=== PATIENT | male | born 1990 | race Caucasian/White ===

== ENCOUNTER 2019-11-18 18:11 | Emergency (ER) | payer OTHER, SELFPAY ==
[2019-11-18 18:40] VITALS: BP 134/84; PULSE 100; RESP 18; TEMP 36.8; O2SAT 99
--- NOTE | 2019-11-18 19:52 | ED.GENADULT ---
HPI - General Adult General Chief complaint: Eye Problems Stated complaint: L EYE DRAINAGE Time Seen by Provider: 11/18/19 19:32 Source: patient Mode of arrival: ambulatory Limitations: no limitations History of Present Illness HPI narrative: 29-year-old male presents for evaluation of left eye redness, clear drainage, blurry vision, some discomfort. He states this developed at 1700 yesterday after he was working underneath of a car. He did not have on glasses or goggles at that time. He denies any specific time that anything fell into his eye. When his eye became irritated, he washed it with water and saline. He reports he has been rubbing his eye and when he woke up this morning there was dried, yellow matted secretions to his eye. Since then throughout the day it is been clear. He does not wear contacts. Still able to drive. Denies any swelling, abnormal bleeding, headache, weakness, confusion. Related Data Home Medications Medication Instructions Recorded Confirmed sertraline 200 mg PO DAILY 11/18/19 11/18/19 Allergies Allergy/AdvReac Type Severity Reaction Status Date / Time No Known Allergies Allergy Verified 11/18/19 18:49 Review of Systems Review of Systems: Narrative: CONSTITUTIONAL: Denies fever, chills, weight loss, or sweats. EYES: Reports left eye visual changes, redness, clear discharge. CARDIOVASCULAR: Denies chest pain, palpitations, or edema. RESPIRATORY: Denies cough or dyspnea. SKIN: Denies rash or itching. NEUROLOGIC: Denies headache, numbness, or weakness. PSYCHIATRIC: Denies anxiety or depression. All systems reviewed & are unremarkable except as noted in HPI and below PMFSH Comments At the time of my signature, I agree with nursing past medical, surgical, social and family history. There is no relevant family history pertinent to the presenting complaint. Exam Narrative: Exam Narrative: GENERAL: No distress, well appearing, well nourished, alert and calm HEAD: Normocephalic, atraumatic. No sinus tenderness noted EYES: Pupils equal, round reactive to light. Extraocular movements intact. Conjunctivae without redness or drainage. Foreign body brown speckle noted at 9:00 of patients eye over iris. NOSE: Nares patent. Nasal turbinates noninflamed. No nasal discharge MOUTH: Mucous membranes moist. No lesions. No cyanosis. Dentition grossly normal. THROAT: Oropharynx without signs erythema, exudates or lesions. Tonsils not enlarged. NECK: Supple. No lymphadenopathy. RESPIRATORY: Airway patent. Chest clear to auscultation bilaterally. Breath sounds equal bilaterally. No retractions. CARDIOVASCULAR: Regular rate and rhythm. No murmurs, rubs, gallops, or clicks. Capillary refill <2 seconds. NEURO: Alert. Motor intact in all extremities. Muscle tone normal. Course Vital Signs Vital signs: Vital Signs Temperature 98.3 F 11/18/19 18:40 Pulse Rate 100 11/18/19 18:40 Respiratory Rate 18 11/18/19 18:40 Blood Pressure 134/84 11/18/19 18:40 Pulse Oximetry 99 11/18/19 18:40 Temperature 98.3 F 11/18/19 18:40 Pulse Rate 100 11/18/19 18:40 Respiratory Rate 18 11/18/19 18:40 Blood Pressure 134/84 11/18/19 18:40 Pulse Oximetry 99 11/18/19 18:40 The patient has been informed that they may have pre-hypertension or Hypertension based on a BP reading in the department. I recommend that the patient call the primary care provider listed on their discharge instructions or a physician of their choice this week to arrange follow up for further evaluation of possible pre-hypertension or Hypertension Medical Decision Making MDM Narrative Medical decision making narrative: Patient is in no acute distress and is non toxic appearing. I performed a fluorescein eye exam on patient. With the naked eye, I could observe a pinpoint brown dot to 9:00 over patient's left pupil. I administered 1 drop of tetracaine into patient's left eye and pulled down left lower eye lid with drop of
== END 2019-11-18 20:08 | disposition home or self-care (01) ==
PROVIDERS: Emergency Provider Nurse Practitioner; PCP Emergency Medicine
DX: T15.02XA Foreign body in cornea, left eye, initial encounter (principal); X58.XXXA Exposure to other specified factors, initial encounter; F41.9 Anxiety disorder, unspecified
CPT/HCPCS: 65220; 99203; A9270; G0463

== ENCOUNTER 2022-11-06 00:30 | Day surgery (SDC) | payer OTHER, SELFPAY ==
[2022-10-28 10:41] VITALS: BMI 25.6
--- NOTE | 2022-10-28 10:44 | PC.NURSE ---
Report to the Outpatient Waiting Room, entrance under the green pavilion located off [facility], at time 1000 on date 11/06/22. Planned Procedure Time: 1200. Time changes happen often and if your time is changed the preop area will call you the afternoon before. - You and your visitor will be asked to self-screen and do not enter if you have any COVID symptoms. - Only one visitor is requested with a max of two and NO children visitors are allowed at this time. - The patient visitor may be requested to leave or wait in car when not with patient due to distancing restrictions. - A mask is optional within the hospital at this time. Patients may have clear liquids (water, carbonated beverages, clear teas, apple juice) until 3 hours prior to surgery with a maximum of 20 ounces. - No food from midnight until time of surgery Take the following medications with a SIP of water the morning of surgery: LEXAPRO DO NOT STOP ANY OF YOUR OTHER PRESCRIPTION MEDICATIONS PRIOR TO SURGERY?EXCEPT THE FOLLOWING Medications to discontinue per physician: N/A Date to take last dose: N/A Please no make-up, nail arabic, hairspray, perfume, deodorant, or body powder the day of surgery. No jewelry (including any body piercings) or valuables the day of surgery, leave them at home. Please take a shower or bath the night before, or the morning of, surgery with an antibacterial soap (HIBICLENS). Wear comfortable, loose fitting clothing. - Jewelry must be removed prior to entering the operating room. Rings and piercings that are not removed may be cut off. - The hospital will not accept responsibility for valuables. - Please leave all valuables, including medications, at home the day of surgery. If you are going home after surgery, a licensed scoop driver must drive you home. - NO public transportation without another adult if you receive anesthesia. - We recommend that an adult stay with you for 24 hours following discharge. - We also recommend that you do not drive, make important decision, drink alcoholic beverages, or take any drugs that were not prescribed by your health care provider for at least 24 hours after your discharge time. Follow any additional instructions given to you from your surgeon. If you or anyone in your household have experienced Covid symptoms in the past week, please notify your surgeon or the nurse liaison at the phone number below for possible testing. Telephone instructions given to PT - ISAIAH LEVI and asked if any additional questions and then verbalized understanding. Patient advised to call surgeon office or pre surgery nurse liaison [phone] if any additional questions.
[2022-11-06] VITALS (9 sets, daily range): BP systolic 109–125; BP diastolic 70–89; PULSE 64–93; RESP 13–20; TEMP 36.4–36.6; O2SAT 97–100; BMI 26.6
--- NOTE | 2022-11-06 10:13 | PM.IMHP ---
H&P: HPI History of Present Illness Date/Time: 11/06/22 10:13 Chief Complaint: umbilical hernia Narrative: Mr. Peña presents today at the request of Renetta Nina NP for evaluation.? Patient reports a 6-month history of bulging at his umbilicus that is painful with activity.? Is able to reduce the bulge manually.? Occasionally the discomfort radiates to his right-sided abdomen.? No change in bowel habits, N/V, or abdominal distension. Review of Systems Review of Systems: All systems reviewed & are unremarkable except as noted in HPI and below PMFSH Past Medical History Medical History Anxiety Depression Encounter to establish care Hypersomnia Left shoulder pain Major depression, chronic Shoulder pain Snoring Umbilical hernia Family History Family History Mother Depression Anxiety Social History Social History Smoking packs per day: 1 Smoking cigarettes per day: 20.0 Years smoked: 5 Smoking pack-years: 5.00 Smoking status: Former smoker Tobacco type: cigarettes Smoking end date: 09/29/14 Alcohol intake: current Drinks per week: 2 Substance use: never Substance use type: does not use Lack of Transportation: No Lack of Food: Never True Current Housing: I Have Housing Concerned About Future Housing: No Difficulty Paying Gas/Electric Bills: No Difficulty Paying for Meds: No Currently Unemployed: No Education: Associate Degree Difficulty w/ Childcare or Family Care: No Living arrangements: with family Spiritual care concerns: No Meds Home Medications and Allergies Home Medications Medication Instructions Recorded Confirmed Type escitalopram oxalate 10 mg tablet 10 mg PO DAILY #30 tabs 09/04/22 10/30/22 Rx (Lexapro) chlorhexidine gluconate 4 % 1 applic topical .COMPLEX #118 mL 09/17/22 10/30/22 Rx topical liquid (Hibiclens) Allergies Allergy/AdvReac Type Severity Reaction Status Date / Time No Known Allergies Allergy Verified 10/30/22 10:58 Exam Const: General: cooperative, comfortable and no acute distress Resp: Auscultation: clear to auscultation bilaterally Cardio: Rate: regular rate Rhythm: regular rhythm GI: Inspection: normal to inspection GI Palp: Yes abdominal tenderness, Yes Tenderness to palpation present (GI), No Guarding due to palpation present (GI), No Rigid due to palpation and Yes Hernia present (umbilical - reducible, tender) Assessment and Plan Assessment and plan (1) Umbilical hernia: Qualifiers: Obstruction and gangrene presence: without obstruction or gangrene Qualified Code(s): K42.9 - Umbilical hernia without obstruction or gangrene Code(s): K42.9 - Umbilical hernia without obstruction or gangrene Status: Acute Assessment and Plan: will setup for open repair c mesh
[2022-11-06] MEDS: LACTATED RINGERS 1,000 ML 30 ML IV CONT ×2 (10:50→13:48)
--- NOTE | 2022-11-06 10:51 | P.PNAN_ITS ---
Anes - Initial Pre Proc Eval Procedure: Operation Date: 11/06/22 12:00 Proposed Procedures p Open Umbilical Hernia Repair with Mesh - Vicki Fitzgerald MD Date/Time: 11/06/22 10:51 Surgeon: Vicki Fitzgerald MD Pre Op Diagnosis: umbilical hernia Patient Data Age: 32 Gender: M Height: 1.91 m Weight: 96.5 kg Allergies Allergy/AdvReac Type Severity Reaction Status Date / Time No Known Allergies Allergy Verified 11/06/22 10:16 Home Medications Medication Instructions Recorded Confirmed Type escitalopram oxalate 10 mg tablet 10 mg PO DAILY #30 tabs 09/04/22 11/06/22 Rx (Lexapro) chlorhexidine gluconate 4 % 1 applic topical .COMPLEX #118 mL 09/17/22 10/30/22 Rx topical liquid (Hibiclens) Patient hx anesthesia problems: none Family hx anesthesia problems: none Results Review: All pre-operative results and documents have been reviewed as part of the pre- operative evaluation. [facility] Past Medical History Medical History Anxiety Depression Encounter to establish care Hypersomnia Left shoulder pain Major depression, chronic Shoulder pain Snoring Umbilical hernia Family History Family History Mother Depression Anxiety Social History Social History Smoking packs per day: 1 Smoking cigarettes per day: 20.0 Years smoked: 5 Smoking pack-years: 5.00 Smoking status: Former smoker Tobacco type: cigarettes Smoking end date: 09/29/14 Alcohol intake: current Drinks per week: 2 Substance use: never Substance use type: does not use Lack of Transportation: No Lack of Food: Never True Current Housing: I Have Housing Concerned About Future Housing: No Difficulty Paying Gas/Electric Bills: No Difficulty Paying for Meds: No Currently Unemployed: No Education: Associate Degree Difficulty w/ Childcare or Family Care: No Living arrangements: with family Spiritual care concerns: No Anes - Eval Final PreProcedure Day of Procedure 11/06/22 10:51 Patient weight: normal Heart: regular rate and rhythm Lungs: clear to auscultation Airway: Mallampati scale class II Neurological: alert and oriented Last oral intake: >/= 8 hours ASA classification: II Emergent: no Anesthetic plan: proceed Anesthesia type and monitoring: general ETT and standard monitoring Results Review: All pre-operative results and documents have been reviewed as part of the pre- operative evaluation. Informed Consent: The patient's anesthetic plan and its attendant risks and benefits were discu ssed with the patient/family/POA. Questions were solicited and answers provided to the satisfaction of the patient/family/POA.
[2022-11-06] MEDS: KETOROLAC 15 MG/ML VIAL (*BKC) IV PUSH (11:08)
[2022-11-06] MEDS: ACETAMINOPHEN 500 MG TABLET 1000 MG PO (11:08)
--- NOTE | 2022-11-06 11:12 | WPDHPUPDATE1 ---
History and Physical Update Update Date/Time: 11/06/22 11:12 History and Physical has been reviewed, including an updated exam of the patient. There are NO changes in the patient's condition. Risks, benefits, and alternatives have been discussed and questions answered. Patient agrees to proceed with procedure.
[2022-11-06] MEDS: BUPIVACAINE/EPINEPHRINE 0.5% 10 ML VIAL 30 ML INFILTRATE (12:14)
[2022-11-06] MEDS: ceFAZolin 2 GM/D5W 50 ML 2 GM/50 ML BAG IVPB (12:31)
--- NOTE | 2022-11-06 13:00 | P.OP_ITS ---
Procedure Note - Detailed Date of Procedure 11/06/22 Pre-op Diagnosis umbilical hernia Post-op Diagnosis Same Procedure Performed repair of incarcerated umbilical hernia measuring 2.5 cm with mesh Surgeon Vicki Fitzgerald MD Anesthesia General Indications 32 y/o M c incarcerated umbilical hernia Findings incarcerated umbilical hernia c preperitoneal fat measuring 2.5 cm Description of Procedure The patient was taken to the operating room placed in the supine position. After adequate induction of general anesthesia, the patient was prepped and draped in the normal sterile fashion. A time-out was then done to verify the patient's identity, as well as the procedure being performed. I began by localizing the area around the umbilicus. I then made a curvilinear incision in the infraumbilical fold. This was taken down to level fascia. I then was able to bluntly dissect around the umbilicus. I then carefully dissected the umbilicus off the underlying fascia. I then noted a small defect with incarcera josé miguel preperitoneal fat. I was able to mobilize the incarcerated tissue and reduce it back into the abdominal cavity. This left an approximately 2.5 cm defect. I then placed a 4.3 cm round piece of ventralex mesh in the underlay position. This was noted to have good, wide local coverage of the defect. I then closed this defect primarily with interrupted 0 Ethibond suture over the underlay mesh repair. I then reapproximated the umbilicus to the fascia with a 3 0 Vicryl U-stitch. The subcutaneous tissue was then closed with 3 0 Vicryl suture. The skin was closed with 4 0 Monocryl subcuticular suture. Dermabond was then placed on the wound. The patient tolerated the procedure well was extubated in the operating room postop. He will be transferred to the recovery room in stable condition. Implants 4.3 cm ventralex mesh in underlay position Estimated Blood Loss 5 Drains No Packing No Pathology None sent Complications No immediate complications Condition Stable Disposition PACU [facility] Billing Surgery - Charge Forward: Surgery Billing
[2022-11-06] MEDS: oxyCODONE HCL (*CRX) 5 MG TAB IR PO (14:10)
== END 2022-11-06 14:45 | disposition home or self-care (01) ==
PROVIDERS: PCP Nurse Practitioner Family; Visit Provider Surgery
PROC: (CPT 49592; principal; 2022-11-06 12:00)
DX: K42.0 Umbilical hernia with obstruction, without gangrene (principal); F41.9 Anxiety disorder, unspecified; F32.A Depression, unspecified; Z87.891 Personal history of nicotine dependence
CPT/HCPCS: 49592; A9270; C1781; J0330; J0690; J1100; J1885; J2250; J2405; J2704; J2710; J3010; J7120